=== PATIENT | female | born 2000 | race African-American/Black ===

== ENCOUNTER 2021-03-18 11:38 | Observation (INO) | payer MEDICAID, SELFPAY ==
[2021-03-18] VITALS (7 sets, daily range): BP systolic 99–125; BP diastolic 48–73; PULSE 70–97; RESP 18; TEMP 36.7; BMI 24.5
--- NOTE | 2021-03-18 11:38 | OBADM ---
This patient, Hai Quezada, admitted to the OB room OB Post 117 for observation. Patient/family oriented to hospital policies and general routines including ID bracelet, bed and alarms, visiting hours, pain management, procedures, bathroom and other care routines, personal items, smoking policy, room service/diet, and visiting hours. Patient/Family are encouraged to report perceived risks to care and to ask questions if they do not understand what they are told or what they should do.
[2021-03-18 12:35] LABS: Add Urine Microscopic? YES; Appearance Urine Cloudy (Clear); Bacteria Urine Trace /hpf; Bilirubin Urine Negative (Negative); Blood Urine Negative (Negative); Color Urine Yellow (Yellow); Glucose Urine UA Negative (Negative); Ketones Urine Negative (Negative); Leukocyte Esterase Ur 3+ LEU/UL (Negative); Mucus Urine Rare /lpf; Nitrate Urine Negative (Negative); Protein Urine Negative (Negative); Specific Grav Ur 1.014 (1.001-1.035); Squamous Epithelial Cell Urine Many /hpf (Few); Urobilinogen Urine Negative mg/dL (<2.0)
[2021-03-18] MEDS: TERBUTALINE SULFATE 1 MG/ML VIAL 0.25 MG SUB-Q (15:39)
[2021-03-18] MEDS: BETAMETHASONE SOD PHOS/ACETATE 30 MG/5 ML VIAL 12 MG IM (15:45)
--- NOTE | 2021-03-18 16:07 | WPDCN ---
Assessment and Plan Assessment and plan (1) contractions: Code(s): O47.00 - False labor before 37 completed weeks of gestation, unspecified trimester Status: Acute Assessment and Plan: pt with contractions no resolution following PO hydration and lunch per RN, SIDNEY 1/75/0 Terb x 1 dose to be given now will also administer celestone GBS collected will continue to monitor for now (2) 34 weeks gestation of : Code(s): Z3A.34 - 34 weeks gestation of Status: Acute Assessment and Plan: pt with outside care records requested for review HPI Data of Consult Date/Time: 03/18/21 16:07 Requesting Physician: Anamaria Rodas MD Primary Care Provider: CHUCK WAGON COOK PHYSICIAN Consult Narrative Narrative: Hai Quezada is a 20 year old female currently 34w2d gestation with SEBASTIAN 04/27/21 (per patient) who presented to L&D with complaints of contractions. Patient reports onset of contractions two days ago and reports significant increase in frequency and intensity of contractions today. She was previously receiving care in [place], [place] at [facility] and recently moved to this area approx. 2 weeks ago. She states that she was previously hospitalized for contractions and received a shot to stop contractions. Denies any vaginal bleeding or leakage of fluid. Reports good movement. In general, patient reports an uncomplicated course, however, states she was being followed for possible SGA fetus. She reports a history of trichomonas during and states that she was treated and also that ABIGAIL was negative. She reports marijuana use during as well. History of one prior miscarriage at 9 weeks s/p medical management. Review of Systems Review of Systems: All systems reviewed & are unremarkable except as noted in HPI and below Constitutional: Constitutional: Reports as per HPI, Reports no additional constitutional complaints, Denies chills, Denies fever(s), Denies headache(s) and Denies night sweats Eyes: Eyes: Reports as per HPI and Reports no additional eye complaints ENT: Reports system reviewed and no additional complaints, except as documented, Reports as per HPI, Reports Normal hearing present and Denies headache(s) Cardiovascular: Cardiovascular: Reports as per HPI, Reports no additional cardiovascular complaints, Denies chest pain and Denies dyspnea Respiratory: Respiratory: Reports as per HPI, Reports no additional respiratory complaints, Denies cough and Denies dyspnea Gastrointestinal: Gastrointestinal: Reports as per HPI, Reports no additional gastrointestinal complaints, Denies abdominal pain, Denies change in bowel habits, Denies change in stool character, Denies nausea and Denies vomiting Genitourinary: Genitourinary: Reports no additional female genitourinary complaints, Reports as per HPI, Denies abnormal vaginal bleeding, Denies genital lesions, Denies hot flashes, Denies dyspareunia, Denies pelvic pain, Denies sexual dysfunction, Denies urinary incontinence, Denies vaginal discharge, Denies vaginal dryness and Denies vaginal odor Musculoskeletal: Musculoskeletal: Reports no additional musculoskeletal complaints and Reports as per HPI Integumentary/Breasts: Skin/Breast: Reports system reviewed and no additional complaints, except as docu, Reports as per HPI, Denies breast pain and Denies nipple discharge Neurologic: Reports system reviewed and no additional complaints, except as documented, Reports as per HPI, Reports Normal hearing present and Denies headache(s) Psychiatric: Psychiatric: Reports no additional psychiatric complaints, Reports as per HPI, Denies anxiety and Denies depression Endocrine: Endocrine: Reports no additional endocrine complaints and Reports as per HPI Hematologic/Lymphatic: Hematologic/Lymphatic: Reports no additional hematologic/lymphatic complai
[2021-03-18] MEDS: NIFEdipine 10 MG CAPSULE PO ×2 (17:29→22:43)
[2021-03-18] MEDS: LACTATED RINGERS 1,000 ML 125 ML IV CONT (21:33)
[2021-03-19 00:02] VITALS: RESP 18; TEMP 36.9
[2021-03-19] MEDS: LACTATED RINGERS 1,000 ML 125 ML IV CONT (00:20)
[2021-03-19] MEDS: hydrOXYzine HCl 50 MG/ML VIAL IM (02:05)
[2021-03-19 02:09] VITALS: BP 111/50; PULSE 77
[2021-03-19 04:07] VITALS: RESP 16; TEMP 36.8
[2021-03-19] MEDS: NIFEdipine 10 MG CAPSULE PO (04:46)
[2021-03-19 04:48] VITALS: BP 106/63; PULSE 84
[2021-03-19 07:53] VITALS: BP 111/55; PULSE 88
--- NOTE | 2021-03-19 09:45 | PC.NURSE ---
RELEASE OF INFORMATION FAXED TO PT PREVIOUS PROVIDER AT [facility]. PT IS TO RETURN TODAY FOR CELESTONE AT [id number].
--- NOTE | 2021-03-19 10:03 | P.PNOB_ITS ---
OB - PN: Subj Subjective Date/time seen: 03/19/21 10:03 Patient remained in house overnight. She received Terb x 1 dose yesterday afternoon followed by a few doses of Procardia. Frequency of contractions varied throughout observation period, however, spaced out significantly after patient received Vistaril. This morning, occ contractions were still noted on toco. SVE mostly unchanged at 1/75/-1 to 0 station (per RN). EFM reactive. Decision made to discharge patient home in stable condition. Patient made aware that she may continue to experience occasional contractions throughout duration of her . Emergency precautions reviewed. Rx for Procardia sent to pharmacy for PRN use. Patient instructed to return to L&D for second dose of celestone this afternoon. Also advised to schedule f/u appt in office next week. All questions and concerns addressed. OB - PN: Obj Data Labs Labs: Laboratory Results - last 24 hr 03/18/21 12:15 Urine Color Yellow Urine Appearance Cloudy H Urine pH 8.0 Ur Specific [place] 1.014 Urine Protein Negative Urine Glucose (UA) Negative Urine Ketones Negative Ur Blood (Man) Negative Urine Nitrate Negative Urine Bilirubin Negative Urine Urobilinogen Negative Leukocyte Esterase Rfl 3+ H Urine RBC 6-10 H Urine WBC 10-15 H Ur Squamous Epith Cells Many H Urine Bacteria Trace Hyaline Casts 1-2 Urine Mucus Rare OB - PN A/P Time Spent With Patient Time: Total time spent is greater than 50% in coordination of care (as documented) at patient's floor/unit and/or counseling patient:
== END 2021-03-19 09:38 | disposition home or self-care (01) ==
PROVIDERS: Admitting Provider Student in an Organized Health Care Education/Training Program; Visit Provider Student in an Organized Health Care Education/Training Program
DX: O47.03 False labor before 37 completed weeks of gestation, third trimester (principal); Z3A.34 34 weeks gestation of pregnancy
CPT/HCPCS: 81001; 87077; 87081; 87086; 87088; 96360; 96361; 96372; A9270; G0378; G0379; J0131; J0702; J3105; J3410; J7120

== ENCOUNTER 2021-03-25 12:43 | Outpatient (RCR) | payer MEDICAID, SELFPAY ==
--- NOTE | ~2021-03-25 | US_ITS ---
EXAMINATION: US OB follow up w BPP, US umbilical doppler DATE: 03/25/2021 15:23 (accession [id number]), 03/25/2021 15:07 (accession [id number]) INDICATION: Small for gestational age. Evaluate growth. TECHNIQUE: Real-time ultrasound of the pelvis was performed. The interpreting radiologist was not pre sent for the study. COMPARISON: None. FINDINGS: There is a single living fetus in vertex presentation. The placenta is anterior. cardiac activ ity and movement are noted. heart rate is 155 beats per minute (bpm). The amniotic fluid index is 8.8 cm, which is normal. Normal range for gestational age is 7.9-24.9 cm. The following biometric data were obtained: BPD: 84 cm corresponds to gestational age 33 weeks 6 day(s). Head circumference: 289 cm corresponds to gestational age 31 weeks 6 day(s). Abdominal circumference: 272 cm corresponds to gestational age 31 weeks 2 day(s). Femur length: 61 cm corresponds to gestational age 31 weeks 6 day(s). Head circumference to abdominal circumference ratio: 1.06. Estimated weight: 1826 g plus or minus 274 g. Biophysical profile performed by the technologist: breathing (30 sec sustained breathing in 30 minutes): 2 out of 2 movement (3 gross body movements in 30 minutes: 2 out of 2 tone (one episode of kuedjgn-lwxoyfuhp-xxzbtnd limb movement): 2 out of 2 Amniotic fluid pocket (2 cm): 2 out of 2 Total score: 8 out of 8 Umbilical artery pulsed Doppler demonstrates peak systolic to end-diastolic velocity ratios (S/D rati os) of 2.25 (5th percentile = 2.03, 95th percentile = 3.4). Doppler IMPRESSION: 1. Single living fetus in vertex presentation with heart rate of 155 bpm. 2. Normal placenta. 3. Biophysical profile 8 out of 8. 4. Gestational age by ultrasound of 32 weeks 2 day(s) with ultrasound estimated date of delivery (SEBASTIAN ) of 05/18/2021. 5. Normal umbilical Doppler ratios. Reviewed, dictated and finalized at location A. IMPRESSION: 1. Single living fetus in vertex presentation with heart rate of 155 bpm. 2. Normal placenta. 3. Biophysical profile 8 out of 8. 4. Gestational age by ultrasound of 32 weeks 2 day(s) with ultrasound estimated date of delivery (SEBASTIAN) of 05/18/2021. 5. Normal umbilical Doppler ratios.
[2021-03-25 13:36] LABS: Basophils Percent Auto 0.4 % (0.2-1.2); Eosinophils Absolute Auto 0.1 K/mm3 (0-0.3); Hematocrit 34.2 % (37.0-47.0); Hemoglobin 11.5 g/dL (12.0-15.0); Immature Granulocyte Absolute 0.14 K/mm3 (0.00-0.031); Immature Granulocyte Percent A 1.9 % (0-0.5); Lymphocytes Percent Auto 27.7 % (18.3-44.2); Mean Corpuscular HGB Conc 33.6 g/dl (32-36); Mean Corpuscular Volume 92.2 fl (80-100); Mean Platelet Volume 11.1 fl (7.4-10.4); Monocytes Absolute Auto 0.7 K/mm3 (0.1-0.6); Monocytes Percent Auto 9.6 % (2.6-8.5); Neutrophils Absolute Auto 4.3 K/mm3 (1.3-6.7); Neutrophils Percent Auto 59.4 % (45.5-73.1); Platelet Count Result 244 k/mm3 (150-375); Red Blood Count 3.71 M/mm3 (4.2-5.4); Red Cell Distribution Width 12.8 % (11.5-14.5); White Blood Count 7.2 K/mm3 (4.5-10.0)
[2021-03-25 14:27] LABS: HIV 1/2 Ab P24 Ag Result Negative (Negative)
[2021-03-25 16:12] VITALS: BP 107/46; PULSE 77
--- NOTE | 2021-03-25 16:13 | PC.NURSE ---
Pt getting very impatient waiting for results. 1543-called ultrasound for update on results. altitude chamber technician stated the report says complete on their end and should receive results soon. 1556-called ultrasound again for update on results. 1600-pt getting more impatient and stating she needed to leave and would come back if she needed to. Pt encouraged to stay until results per Dr. Rodas's instructions. 1612-pt walked out of department. 161-Dr. Rodas notified.
[2021-03-27 15:38] LABS: Rapid Plasma Reagin Non-Reactive (NonReactive)
== END 2021-06-10 14:14 | disposition home or self-care (01) ==
LOC: ANHOBOP 12:43
PROVIDERS: Visit Provider Student in an Organized Health Care Education/Training Program
DX: O36.5930 Maternal care for other known or suspected poor fetal growth, third trimester, not applicable or unspecified (principal); Z11.4 Encounter for screening for human immunodeficiency virus [HIV]; Z3A.35 35 weeks gestation of pregnancy
CPT/HCPCS: 36415; 59025; 76816; 76819; 76820; 85025; 86592; 86703; G0432

== ENCOUNTER 2021-04-01 05:08 | Inpatient (IN) | payer MEDICAID, SELFPAY ==
[2021-04-01] VITALS (85 sets, daily range): BP systolic 77–129; BP diastolic 38–99; PULSE 50–225; RESP 16; TEMP 36.7–37.3; O2SAT 73–100; BMI 23.8
--- OUTSIDE RECORDS SUMMARY | 2021-04-01 05:17 | XMS_ITS ---
:2000 Author Care Team Providers Name Role Phone Marco Herndon Primary Care Provider Unavailable Allergies Code Code System Name Reaction Severity Status Onset NKDA ? Medications Name Status Start Date Stop Date ? ? azithromycin 500 mg tablet Active ? Not a vailable Benadryl 25 mg capsule Active ? Not avail able Take 1 capsule every day by oral route at bedtime. ibuprofen 600 mg tablet Active ? Not avai lable medroxyprogesterone 150 mg/mL Active ? No t available intramuscular suspension metronidazole 500 mg tablet Active ? Not available multivitamin tablet Active ? Not availabl e Take 1 tablet every day by oral route for 30 days. Retin-A 0.05 % topical cream Active ? Not available Apply 1 application every day by topical route at bedtime. Tubersol 5 tub. unit/0.1 mL intradermal injection solution Activ e ? Not available Administer .1ml interdermally Vitamin D2 1,250 mcg (50,000 unit) capsule Active ? Not available Problems Name Status Onset Date Source ? Chlamydial Infection Active ? Encounter Vitamin D Deficiency Active ? Encounter Acne Active ? Encounter Dyssomnia Active ? Encounter Procedures None recorded. Results Lab Results Date Name Specimen Result Interpretation Description Value Range Status Address ? 06/28/2018 Bacterial DRAINAGE&DRAINAGE ABNORMAL [facility]
[2021-04-01] MEDS: AMPICILLIN 2 GM/NS 100 ML 2 GM/100 ML BAG IVPB (06:07)
[2021-04-01] MEDS: LACTATED RINGERS 1,000 ML 125 ML IV CONT ×3 (06:07→16:49)
[2021-04-01] MEDS: OXYTOCIN 30 UNITS/NS 500 ML 30 UNITS/500 ML BAG IV CONT (06:08)
[2021-04-01 06:22] LABS: Amphetamine Screen Urine Negative (Negative); Barbiturate Screen Urine Negative (Negative); Benzodiazepines Screen Urine Negative (Negative); Cannabinoid Screen Urine Positive (Negative); Cocaine Screen Urine Negative (Negative); Methadone Screen Urine Negative (Negative); Opiate Screen Urine Negative (Negative); Phencyclidine Screen Urine Negative (Negative)
[2021-04-01 06:24] LABS: Basophils Absolute Auto 0.1 K/mm3 (0.0-0.1); Basophils Percent Auto 0.6 % (0.2-1.2); Eosinophils Absolute Auto 0.1 K/mm3 (0-0.3); Eosinophils Percent Auto 0.7 % (0-4.4); Hematocrit 35.3 % (37.0-47.0); Hemoglobin 11.8 g/dL (12.0-15.0); Immature Granulocyte Absolute 0.16 K/mm3 (0.00-0.031); Immature Granulocyte Percent A 1.9 % (0-0.5); Lymphocytes Absolute Auto 2.43 K/mm3 (0.9-3.2); Mean Corpuscular HGB Conc 33.4 g/dl (32-36); Mean Corpuscular Hemoglobin 31.1 pg (26-34); Mean Corpuscular Volume 92.9 fl (80-100); Mean Platelet Volume 11.2 fl (7.4-10.4); Monocytes Absolute Auto 0.7 K/mm3 (0.1-0.6); Monocytes Percent Auto 7.9 % (2.6-8.5); Neutrophils Percent Auto 59.9 % (45.5-73.1); Platelet Count Result 217 k/mm3 (150-375); White Blood Count 8.4 K/mm3 (4.5-10.0)
--- NOTE | 2021-04-01 08:19 | LDADM ---
This patient, Hai Quezada, was admitted to Labor/Delivery/Recovery 103 on 04/01/21 at 05:08. Plans for labor, pain management and were discussed with patient. Patient/family oriented to hospital policies and general routines including ID bracelet, bed and alarms, visiting hours, pain management, procedures, bathroom and other care routines, personal items, smoking policy, room service/diet and guest tray routines, infant security routines, and visiting hours. Patient/Family are encouraged to report perceived risks to care and to ask questions if they do not understand what they are told or what they should do. See OBIX for further documentation.
--- NOTE | 2021-04-01 08:57 | PM.IMHP ---
H&P: HPI History of Present Illness Date/Time: 04/01/21 08:57 Patient is a currently 36w2d gestation with SEBASTIAN 04/27/21 who presented to L&D for induction of labor secondary to IUGR. Patient was previously receiving care in [place], [place] at [facility] and recently moved to this area approx. 4 weeks ago. She was seen on L&D approx. 2 weeks ago for contractions. She reported a history of IUGR that was diagnosed in [place]. Further evaluation at [facility] here confirmed similar findings and recommendation was made to proceed with IOL as EFW 3% and THOMAS 5cm. In general, patient doing well. Reports occ contractions. Denies any vaginal bleeding or leakage of fluid. Reports good movement. Chief Complaint: Intrauterine at 36w2d gestation Intrauterine growth restriction GBS positive Review of Systems Review of Systems: All systems reviewed & are unremarkable except as noted in HPI and below Constitutional: Constitutional: Reports as per HPI, Reports no additional constitutional complaints, Denies chills, Denies fever(s), Denies headache(s) and Denies night sweats Eyes: Eyes: Reports as per HPI and Reports no additional eye complaints ENT: Reports system reviewed and no additional complaints, except as documented, Reports as per HPI, Reports Normal hearing present and Denies headache(s) Cardiovascular: Cardiovascular: Reports as per HPI, Reports no additional cardiovascular complaints, Denies chest pain and Denies dyspnea Respiratory: Respiratory: Reports as per HPI, Reports no additional respiratory complaints, Denies cough and Denies dyspnea Gastrointestinal: Gastrointestinal: Reports as per HPI, Reports no additional gastrointestinal complaints, Denies abdominal pain, Denies change in bowel habits, Denies change in stool character, Denies nausea and Denies vomiting Genitourinary: Genitourinary: Reports no additional female genitourinary complaints, Reports as per HPI, Denies abnormal vaginal bleeding, Denies genital lesions, Denies hot flashes, Denies dyspareunia, Denies pelvic pain, Denies sexual dysfunction, Denies urinary incontinence, Denies vaginal discharge, Denies vaginal dryness and Denies vaginal odor Musculoskeletal: Musculoskeletal: Reports no additional musculoskeletal complaints and Reports as per HPI Integumentary/Breasts: Skin/Breast: Reports system reviewed and no additional complaints, except as docu, Reports as per HPI, Denies breast pain and Denies nipple discharge Neurologic: Reports system reviewed and no additional complaints, except as documented, Reports as per HPI, Reports Normal hearing present and Denies headache(s) Psychiatric: Psychiatric: Reports no additional psychiatric complaints, Reports as per HPI, Denies anxiety and Denies depression Endocrine: Endocrine: Reports no additional endocrine complaints and Reports as per HPI Hematologic/Lymphatic: Hematologic/Lymphatic: Reports no additional hematologic/lymphatic complaints and Reports as per HPI Allergic/Immunologic: Allergic/Immunologic: Reports no additional allergic/immunologic complaints and Reports as per HPI PMFSH Past Medical History Medical History Anemia Miscarriage Social History Social History Smoking status: Never smoker Alcohol intake: former Substance use: current Substance use type: marijuana Last use: unsure Spiritual care concerns: No Agree to blood products: No Meds Home Medications and Allergies Home Medications Medication Instructions Recorded Confirmed Type prenat.vits,morro,gnv-eiyd-xxhdb 1 tablet PO DAILY 03/18/21 03/18/21 History nifedipine 10 mg PO Q6HR PRN cap 03/19/21 Rx amoxicillin 875 mg tablet 875 mg PO Q12H #10 tablet 03/23/21 Rx Allergies Allergy/AdvReac Type Severity Reaction Status Date / Time No Known Allergies Allergy Lm
[2021-04-01] MEDS: AMPICILLIN 1 GM/NS 50 ML 1 GM/50 ML BAG IVPB ×3 (10:28→17:52)
--- NOTE | 2021-04-01 13:18 | PM.OBPNLAB ---
Pain Control Date/time seen: 04/01/21 13:18 Patient doing well. SVE 3/80/0. AROM, clear fluid noted. EFM category 1. Peerless shows ctx q2-3 mins. Continue pitocin. Pain management PRN.
[2021-04-01] MEDS: fentaNYL CITRATE INJ (*CRX) 100 MCG/2 ML VIAL IV PUSH (13:58)
--- NOTE | 2021-04-01 14:39 | WPDANESEPPF ---
Anes - Initial Pre Proc Eval Date/Time: 04/01/21 14:39 Surgeon: Anamaria Rodas MD Pre Op Diagnosis: Induction of Labor Patient Data Age: 21 Gender: F Height: 1.63 m Weight: 63 kg Last Vital Signs Temp 37.3 C 04/01/21 13:30 Pulse 71 04/01/21 14:31 BP 107/67 04/01/21 14:31 Allergies Allergy/AdvReac Type Severity Reaction Status Date / Time No Known Allergies Allergy Verified 03/31/21 13:11 Home Medications Medication Instructions Recorded Confirmed Type prenat.vits,morro,pgb-zvna-kvoar 1 tablet PO DAILY 03/18/21 03/18/21 History nifedipine 10 mg PO Q6HR PRN cap 03/19/21 Rx amoxicillin 875 mg tablet 875 mg PO Q12H #10 tablet 03/23/21 Rx Laboratory Tests 04/01/21 04/01/21 04/01/21 05:43 05:43 05:43 WBC 8.4 K/mm3 K/mm3 (4.5-10.0) RBC 3.80 M/mm3 L M/mm3 (4.2-5.4) Hgb 11.8 g/dL L g/dL (12.0-15.0) Hct 35.3 % L % (37.0-47.0) MCV 92.9 fl fl (80-100) MCH 31.1 pg pg (26-34) MCHC 33.4 g/dl g/dl (32-36) RDW 13.0 % % (11.5-14.5) Plt Count 217 k/mm3 k/mm3 (150-375) MPV 11.2 fl H fl (7.4-10.4) Immature Gran % (Auto) 1.9 % H % (0-0.5) Neut % (Auto) 59.9 % % (45.5-73.1) Lymph % (Auto) 29.0 % % (18.3-44.2) Garrett % (Auto) 7.9 % % (2.6-8.5) Eos % (Auto) 0.7 % % (0-4.4) Baso % (Auto) 0.6 % % (0.2-1.2) Lymph # (Auto) 2.43 K/mm3 K/mm3 (0.9-3.2) Garrett # (Auto) 0.7 K/mm3 H K/mm3 (0.1-0.6) Eos # (Auto) 0.1 K/mm3 K/mm3 (0-0.3) Baso # (Auto) 0.1 K/mm3 K/mm3 (0.0-0.1) Abs Immat Gran (auto) 0.16 K/mm3 H K/mm3 (0.00-0.031) Absolute Neuts (auto) 5.0 K/mm3 K/mm3 (1.3-6.7) Absolute Nucleated RBC 0.0 K/mm3 K/mm3 (0.0-0.012) Nucleated RBC % 0.0 % % (0.0-0.2) Urine Opiates Screen Urine Methadone Screen Ur Barbiturates Screen Ur Phencyclidine Scrn Ur Amphetamine Screen U Benzodiazepines Scrn Urine Cocaine Screen U Cannabinoids Screen RPR Pending Blood Type O Positive Antibody Screen Negative 04/01/21 05:43 WBC RBC Hgb Hct MCV MCH MCHC RDW Plt Count MPV Immature Gran % (Auto) Neut % (Auto) Lymph % (Auto) Garrett % (Auto) Eos % (Auto) Baso % (Auto) Lymph # (Auto) Garrett # (Auto) Eos # (Auto) Baso # (Auto) Abs Immat Gran (auto) Absolute Neuts (auto) Absolute Nucleated RBC Nucleated RBC % Urine Opiates Screen Negative (Negative) Urine Methadone Screen Negative (Negative) Ur Barbiturates Screen Negative (Negative) Ur Phencyclidine Scrn Negative (Negative) Ur Amphetamine Screen Negative (Negative) U Benzodiazepines Scrn Negative (Negative) Urine Cocaine Screen Negative (Negative) U Cannabinoids Screen Positive A (Negative) RPR Blood Type Antibody Screen Patient hx anesthesia problems: none Family hx anesthesia problems: none Results Review: All pre-operative results and documents have been reviewed as part of the pre-operative evaluation. [facility] Past Medical History Medical History Anemia Miscarriage Social History Social History Smoking status: Never smoker Alcohol intake: former Substance use: current Substance use type: marijuana Last use: unsure Spiritual care concerns: No Agree to blood products: No Anes - Eval Final PreProcedure Day of Procedure 04/01/21 14:39 Patient weight: overweight Heart: regular rate and rhythm Lungs: clear to a
[2021-04-01 15:19] LABS: Rapid Plasma Reagin Non-Reactive (NonReactive)
--- NOTE | 2021-04-01 16:12 | WPDHPUPDATE1 ---
History and Physical Update Update Date/Time: 04/01/21 16:12 History and Physical has been reviewed, including an updated exam of the patient. There are NO changes in the patient's condition. Risks, benefits, and alternatives have been discussed and questions answered. Patient agrees to proceed with procedure.
[2021-04-01] MEDS: ONDANSETRON INJ 4 MG/2 ML VIAL IV PUSH (17:39)
--- NOTE | 2021-04-01 18:42 | PM.OBPRVD ---
OB - Delivery Note Procedure Delivery date: 04/01/21 Procedure: The patient is a 21-year-old now who presented to labor and delivery on the morning of 04/01/2021 at 36 weeks 2 days gestation for scheduled induction of labor secondary to IUGR. Patient was admitted to labor and delivery where induction of labor was started with Pitocin. Antibiotics were started for GBS prophylaxis. Pitocin was slowly titrated throughout the morning and afternoon. Artificial rupture membranes was performed. Clear amniotic fluid was noted. Patient made progressive cervical change. Patient became uncomfortable and requested an epidural for pain management which was placed without difficulty. Patient progressed to fully dilated at 6:10 p.m. head was noted at introitus. Patient was prepped and draped for delivery. Patient was encouraged to push. At 6:27 p.m., patient delivered infant head atraumatically and without difficulty in HAO presentation. Occiput restituted to maternal left side. With subsequent push, the 's neck, shoulders, and rest of body delivered without difficulty. was crying spontaneously. Infant's nose and mouth were suctioned with bulb suction and infant was placed on maternal abdomen where care was assumed by awaiting nursing staff. Delayed cord clamping was performed for approximately 60 seconds. The cord was clamped and cut. A segment of cord was collected for cord gases. Cord blood was collected. The placenta was delivered spontaneously and intact. Uterine fundus noted be firm with massage. On inspection, a superficial left vaginal wall laceration was noted. Minimal oozing was noted. A single ppiyib-dd-[id number] suture with 3-0 Vicryl was placed. Excellent hemostasis was noted. Estimated blood loss for entire delivery was 150 cc. The infant was a liveborn female , apgars 9 and 9, weighing 4 lbs 10 oz. Both mother and baby doing well after delivery. events: Labor Induction Induction method: per pitocin protocol Delivery augmentation: rupture of membranes Delivery monitor: external FHT and external uterine Route of delivery: Laceration Description: Superficial (left vaginal wall) Delivery repair: vicryl (3-0 vicryl) Specimen: Yes (placenta and cord) Quantitative Blood Loss (ml): 150 Anesthesia type: Epidural Disposition: floor Complications: No immediate complications Baby Date of : 04/01/21 Time of : 18:27 Weeks of gestation at delivery: 36 (36.2) gender: Female Weight (pounds): 4 Weight (ounces): 10 presentation: vertex position: Left Occiput Anterior Placenta delivery description: Spontaneous cord vessel description: 3 Vessels and Clamped/Cut score one minute: 9 score five minutes: 9
[2021-04-01] MEDS: OXYTOCIN 30 UNITS/NS 500 ML 30 UNITS/500 ML BAG 125 UNITS IV CONT (18:57)
[2021-04-01] MEDS: IBUPROFEN 600 MG TABLET PO (20:19)
--- NOTE | 2021-04-01 21:41 | OBPPTRN ---
Addendum entered by Radha Quinones RN 04/01/21 23:15: Patient transferred to post room #292 via wheelchair. Oriented to unit, room, information board, rooming in, admission packet and security measures. Patient verbalizes understanding. Original Note: Patient transferred to post room # via ( ). Support person present. Oriented to unit, room, information board, rooming in, admission packet and security measures. Patient verbalizes understanding.
[2021-04-01] MEDS: HYDROcodone/acetaminophen (*CRX) 5-325 MG TABLET 1 TAB PO (22:00)
[2021-04-02] VITALS: BP 110/62; PULSE 62; RESP 16; TEMP 36.9
[2021-04-02 04:00] VITALS: BP 111/60; PULSE 51; RESP 16; TEMP 36.9
[2021-04-02 04:54] LABS: Hematocrit 33.4 % (37.0-47.0); Hemoglobin 10.9 g/dL (12.0-15.0)
--- NOTE | 2021-04-02 08:00 | PC.NURSE ---
PT introductions made and plan of care discussed per post , pain management, breast bottle feeding, daily care activities. PT received such instructions this shift per one to one discussion, mom baby care guide and demonstration. PT sole recipient of such instructions and no barriers to learning identified at this time. PT verbalized understanding of such care.
[2021-04-02 08:40] VITALS: BP 124/90; PULSE 54; RESP 18; TEMP 37.1; O2SAT 100
[2021-04-02 10:00] VITALS: PULSE 51; RESP 16; O2SAT 87
[2021-04-02] MEDS: MULTIVIT/MIN/PREN/FOL AC/IRON TABLET 1 TAB PO (10:00)
[2021-04-02] MEDS: ACETAMINOPHEN 325 MG TABLET 650 MG PO ×2 (10:00→18:34)
[2021-04-02] MEDS: DOCUSATE SODIUM 100 MG CAPSULE PO ×2 (10:00→18:32)
[2021-04-02] MEDS: IBUPROFEN 600 MG TABLET PO ×2 (10:01→18:32)
--- NOTE | 2021-04-02 10:32 | P.PNOB_ITS ---
OB - PN: Subj Subjective Date/time seen: 04/02/21 10:32 Patient doing well this morning. Reports minimal burning with urination as urine contacts skin. Reports relief with rodri bottle. Minimal lochia. Ambulating without difficulty. Baby well. OB - PN: Obj Data Labs CBC & Chem 7: 04/02/21 04:05 Labs: Laboratory Results - last 24 hr 04/01/21 04/02/21 05:43 04:05 Hgb 10.9 L Hct 33.4 L RPR Non-reactive OB - PN A/P Assessment and Plan (1) Normal spontaneous vaginal delivery: Code(s): O80 - Encounter for full-term uncomplicated delivery Status: Acute Assessment and Plan: PPD#1 doing well continue routine care anticipate dc home tomorrow Time Spent With Patient Time: Total time spent is greater than 50% in coordination of care (as do cumented) at patient's floor/unit and/or counseling patient: Exam Const: General: cooperative, healthy appearing, comfortable and no acute distress GI: Inspection: non-distended GI Palp: Yes Soft to palpation and No Tenderness to palpation present (GI) Other: fundus firm below umbilicus Extrem: Right lower extremity: no edema Left lower extremity: no edema Other: no calf tenderness
--- NOTE | 2021-04-02 11:43 | PCCCNOTE ---
Care Coordination. Patient referred to care coordination for positive THC for mom and baby meconium pending. Met with pt. at bedside. She reports plans to return home with her mother. She was living in [place], [place] a couple years, but in the last month or so moved back here to stay with mom for assistance with baby. She reports FOB not thinking he's dad, so gave her DNA testing information. Pt. reports she had baby shower and all necessary baby supplies. Provided her with a list of community resources as well. Spoke with Raul Jordan at [facility] hotline who took pt.'s situation as information only ID#[phone]. No further SS needs indicated.
[2021-04-02 11:50] VITALS: BP 110/63; PULSE 74; RESP 18; TEMP 37; O2SAT 100
--- NOTE | 2021-04-02 12:30 | PC.NURSE ---
Consult with pt., mother reports she wanted to breastfeed and is not latching. Mother has attempted to breast without a successful latch. Discussed establishing in the late may be more difficult due to their immaturity, infant may be less alert, have less stamina, and have greater difficulty with latch, suck, and swallow. Infant?s feeding may impact mother?s milk supply, pumping may need to be initiated until milk supply is well established and infant is able to effective without supplementation. Offered to assist mother with pumping. Mother states she will pump and offer EBM as available to infant.
--- NOTE | 2021-04-02 14:10 | PC.NURSE ---
Breast pump provided due to /ineffective feeding. Instructions given on breast pump care and usage, pumping schedule, nipple care, and collection and storage of breast milk. Encouraged [id number], breast massage and manual expression to stimulate supply. Assessed patient for correct flange size, placement and draw. Patient verbalizes and demonstrates understanding of instructions. Mother states she will bottle feed and attempt infant to breast once her milk is in. Suggested mother put to breast each feeding for a few minutes to allow her to make attempts, helping with stimulation of milk supply.
[2021-04-02 19:30] VITALS: BP 105/55; PULSE 74; RESP 18; TEMP 37; O2SAT 100
[2021-04-03] MEDS: HYDROcodone/acetaminophen (*CRX) 5-325 MG TABLET 1 TAB PO (02:35)
[2021-04-03] MEDS: IBUPROFEN 600 MG TABLET PO ×2 (02:35→11:17)
--- NOTE | 2021-04-03 07:00 | PC.NURSE ---
PT introductions made and plan of care discussed per post , pain management, breast bottle feeding, pumping, daily care activities and pending discharge to home. PT sole recipient of such instructions and no barriers to learning identified. PT received such instructions and care this shift via one to one discussion, mom baby care guide and demonstrations. PT verbalized understanding of such care.
--- NOTE | 2021-04-03 09:50 | PM.OBPNVD ---
OB - PN: Subj Subjective Date/time seen: 04/03/21 09:50 Patient doing well. Denies any abdominal pain or cramping. Minimal lochia. Denies any headache, chest pain, SOB, N/V. Ambulating without difficulty. Voiding well. OB - PN: Obj Data Labs CBC & Chem 7: 04/02/21 04:05 OB - PN A/P Assessment and Plan (1) Normal spontaneous vaginal delivery: Code(s): O80 - Encounter for full-term uncomplicated delivery Status: Acute Assessment and Plan: PPD#2 doing well dc home in stable condition emergency precautions reviewed Time Spent With Patient Time: Total time spent is greater than 50% in coordination of care (as documented) at patient's floor/unit and/or counseling patient: Exam Const: General: cooperative, healthy appearing, comfortable and no acute distress GI: Inspection: non-distended GI Palp: Yes Soft to palpation and No Tenderness to palpation present (GI) Other: fundus firm below umbilicus Extrem: Right lower extremity: no edema Left lower extremity: no edema Other: no calf tenderness
--- NOTE | 2021-04-03 09:52 | PM.OBDSVD ---
DS: Admitting Diagnosis Discharge Date 04/03/21 Admitting Diagnosis IUP at 36w2d gestation IUGR OB - DS: Summary OB Procedures : None OB Procedures Intrapartum: Spontaneous Vag Delivery OB Procedures: : None Time Spent with Patient Time attestation: Total time spent providing and/or coordinating discharge services: DS: Data Data Completed and Pending Pending studies at discharge: Pending at discharge 04/01/21 19:37 Surgical [PTH] Routine Discharge Plan Discharge Attending physician on discharge: Anamaria Rodas Discharging Clinician: Anamaria Rodas Anticipated Discharge Date/Time: 04/03/21 09:52 Patient Disposition: Home, Self-Care Activity: pelvic rest Diet: regular Discharge Instructions: Call office ([phone]) to schedule a visit in 4-6 weeks. You may take Ibuprofen 600mg every 6 hours as needed for pain. Pain medication may make you constipated. It may be helpful to take an [id number] stool softener, such as Colace and/or Senokot, along with the pain medication to help lessen constipation. Call office or go to ED for pain not controlled with medication, headache, chest pain, shortness of breath, fever, chills, persistent nausea or vomiting, severe abdominal pain, heavy vaginal bleeding >2 pads/hour, foul vaginal discharge or odor, or problems with your breasts. Patient Instructions: Antibiotic Form Stand Alone Forms: General Discharge Information Follow-up/Referrals: Anamaria Rodas MD [Physician] - Discharge Medications: Continued prenat.vits,morro,ypo-mctm-hummn Tablet 1 tablet PO DAILY RF: 0 Discontinued nifedipine 10 mg Capsule 10 mg PO Q6HR PRN (Reason: Cramping) RF: 0 amoxicillin 875 mg tablet 875 mg PO Q12H Qty: 10 RF: 0 Date of admission: 04/01/21 05:08 Primary Care Provider: PHYSICIAN,PEDIATRIC PHYSICIAN Admitting Provider: Anamaria Rodas Attending physician on admission: Anamaria oRdas Condition: Stable
[2021-04-03 11:00] VITALS: BP 108/60; PULSE 64; RESP 18; TEMP 36.6; O2SAT 100
[2021-04-03] MEDS: DOCUSATE SODIUM 100 MG CAPSULE PO (11:16)
[2021-04-03] MEDS: ACETAMINOPHEN 325 MG TABLET 650 MG PO (11:17)
[2021-04-03] MEDS: MULTIVIT/MIN/PREN/FOL AC/IRON TABLET 1 TAB PO (11:17)
--- NOTE | 2021-04-03 12:00 | PC.NURSE ---
PT receive discharge instructions per protocol and verbalized understanding of such instruction
--- NOTE | 2021-04-03 12:30 | PC.NURSE ---
PT discharged to home ambulatory accompanied by infant and taken to waiting car. follow up appts confirmed
[2021-04-05 13:24] VITALS: BP 103/50; PULSE 56; RESP 16; TEMP 36.8; O2SAT 100
== END 2021-04-03 12:30 | disposition home or self-care (01) | DRG 560 ==
LOC: ANHLDR 05:15 → ANHOB2 22:16
PROVIDERS: Admitting Provider Student in an Organized Health Care Education/Training Program; Visit Provider Student in an Organized Health Care Education/Training Program
DX: O36.5930 Maternal care for other known or suspected poor fetal growth, third trimester, not applicable or unspecified (principal); Z37.0 Single live birth; Z3A.36 36 weeks gestation of pregnancy; O36.8330 Maternal care for abnormalities of the fetal heart rate or rhythm, third trimester, not applicable or unspecified; O99.824 Streptococcus B carrier state complicating childbirth; O71.4 Obstetric high vaginal laceration alone; O99.02 Anemia complicating childbirth; D64.9 Anemia, unspecified
CPT/HCPCS: 36415; 80307; 85014; 85018; 85025; 86592; 86850; 86900; 86901; 88307; A9270; J0290; J2405; J2590; J2795; J3010; J7120

== ENCOUNTER 2021-11-14 09:01 | Emergency (ER) | payer BC, SELFPAY ==
--- NOTE | ~2021-11-14 | US_ITS ---
US pelvic complete w TV DATE: 11/14/2021 11:55 INDICATION: Pelvic pain TECHNIQUE: Real-time imaging via transabdominal and transvaginal approaches COMPARISON: None FINDINGS: The uterus measures 7.2 cm height, 3.8 cm AP and 5.2 cm transverse dimension. The central e ndometrial echo complex measures up to 10 mm AP dimension. The left ovary measures 2.7 x 2.2 x 3.3 cm with probable ruptured approximately 1.8 x 1.0 [address] There is vascular flow to the left ovary. The right ovary measures 2.7 x 2.6 x 2.5 cm, with vascular flow. Mild free fluid in the posterior cul-de-sac. IMPRESSION: Probable ruptured left ovarian cyst with mild free fluid in the posterior cul-de-sac Reviewed, dictated and finalized at [facility] Reviewed, dictated and finalized at [facility] IMPRESSION: Probable ruptured left ovarian cyst with mild free fluid in the pos terior cul-de-sac
[2021-11-14 09:30] VITALS: BP 127/72; PULSE 107; RESP 16; TEMP 36.9; O2SAT 100
[2021-11-14 10:05] LABS: Basophils Absolute Auto 0.1 K/mm3 (0.0-0.1); Basophils Percent Auto 1.2 % (0.2-1.2); Eosinophils Absolute Auto 0.1 K/mm3 (0-0.3); Eosinophils Percent Auto 1.5 % (0-4.4); Hematocrit 43.6 % (37.0-47.0); Hemoglobin 13.8 g/dL (12.0-15.0); Immature Granulocyte Absolute 0.02 K/mm3 (0.00-0.031); Immature Granulocyte Percent A 0.3 % (0-0.5); Lymphocytes Absolute Auto 2.35 K/mm3 (0.9-3.2); Lymphocytes Percent Auto 39.4 % (18.3-44.2); Mean Corpuscular HGB Conc 31.7 g/dl (32-36); Mean Corpuscular Volume 91.6 fl (80-100); Monocytes Absolute Auto 0.5 K/mm3 (0.1-0.6); Monocytes Percent Auto 7.9 % (2.6-8.5); Neutrophils Percent Auto 49.7 % (45.5-73.1); Platelet Count Result 322 k/mm3 (150-375); Red Blood Count 4.76 M/mm3 (4.2-5.4); Red Cell Distribution Width 14.1 % (11.5-14.5)
[2021-11-14 10:13] LABS: Appearance Urine Clear (Clear); Bilirubin Urine Negative (Negative); Blood Urine Negative (Negative); Color Urine Yellow (Yellow); Glucose Urine UA Negative (Negative); Ketones Urine Negative (Negative); Leukocyte Esterase Ur Negative LEU/UL (Negative); Nitrate Urine Negative (Negative); Protein Urine Negative (Negative); Urobilinogen Urine 0.2 mg/dL (<2.0)
[2021-11-14 10:15] LABS: Alanine Aminotransferase 17 U/L (6-35); Albumin Level 4.5 g/dL (3.5-5.1); Alkaline Phosphatase 88 U/L (38-126); Anion Gap 3 mmol/L (8-16); Aspartate Amino Transferase 23 U/L (14-36); Bilirubin,Total 0.5 mg/dL (0.2-1.3); Blood Urea Nitrogen 12 mg/dL (7-17); Calcium 9.2 mg/dL (8.4-10.2); Carbon Dioxide 30 mmol/L (22-30); Chloride 104 mmol/L (98-107); Estimated CRCL calculation 78 ml/min; Estimated Glomerular Filt Rate > 60; Glucose 94 mg/dL (65-110); Lipase 29 U/L (23-300); Potassium 4.2 mmol/L (3.4-5.0); Sodium 137 mmol/L (137-145)
[2021-11-14 10:15] LABS: Add Urine Microscopic? NO
[2021-11-14 10:51] VITALS: BP 145/97; PULSE 60; RESP 18; O2SAT 100
--- NOTE | 2021-11-14 11:23 | ED.ABDPAIN ---
HPI - Abdominal Pain General Chief Complaint: Abdominal Pain <Tonja Rosas PA-C - Last Filed: 11/14/21 12:39> Stated Complaint: abdominal pain <Tonja Rosas PA-C - Last Filed: 11/14/21 12:39> Time Seen by Provider: 11/14/21 10:44 <Tonja Rosas PA-C - Last Filed: 11/14/21 12:39> Source: patient <EBER Workman Last Filed: 11/14/21 12:39> Mode of arrival: ambulatory <EBER Workman Last Filed: 11/14/21 12:39> Limitations: no limitations <Tonja Rosas PA-C - Last Filed: 11/14/21 12:39> History of Present Illness HPI narrative: This is a 21-year-old female that presents to the emergency department for pelvic pain noted over the last couple of weeks. Reports the pain has been constant. It is intermittently more sharp in nature. She has been taking Tylenol with little relief. She is due to start a cycle and has not yet. Is unsure if she is . She also reports some abnormal vaginal discharge. Denies fever, vomiting, dysuria, hematuria. <Tonja Rosas PA-C - Last Filed: 11/14/21 12:39> Related Data Allergies/Adverse Reactions: Allergies Allergy/AdvReac Type Severity Reaction Status Date / Time No Known Allergies Allergy Verified 05/07/21 12:16 <Tonja Rosas PA-C - Last Filed: 11/14/21 12:39> Review of Systems Review of Systems: CONSTITUTIONAL: Denies fever GASTROINTESTINAL: Reports abdominal pain. Denies nausea, vomiting, or diarrhea. GENITOURINARY: Denies dysuria or hematuria. <Tonja Rosas PA-C - Last Filed: 11/14/21 12:39> All systems reviewed & are unremarkable except as noted in HPI and below <EBER Workman Last Filed: 11/14/21 12:39> PMFSH Past Medical History Medical History: Medical History Anemia Miscarriage Vaginal delivery 04/01/21 <Tonja Rosas PA-C - Last Filed: 11/14/21 12:39> Social History Social History: Social History Smoking status: Never smoker Alcohol intake: former Substance use: current Substance use type: marijuana Last use: unsure Spiritual care concerns: No Agree to blood products: No <Tonja Rosas PA-C - Last Filed: 11/14/21 12:39> Exam Narrative: GENERAL: Well-appearing, well-nourished, and in no acute distress. HEAD: Normocephalic, atraumatic. EYES: EOMI. CHEST: Clear to auscultation. No respiratory distress. No wheezes rales or rhonchi HEART: Regular rate and rhythm. No murmur heard. Normal peripheral pulses. ABDOMEN: Soft, nondistended, normal active bowel sounds. Mild tenderness to palpation throughout the lower abdomen, without guarding. No CVA tenderness EXTREMITIES: Normal range of motion. No edema. SKIN: Warm, dry, no rash. NEURO: No focal deficits. Alert and oriented x3. PSYCH: Normal mood and affect PELVIC: Mild cervical irritation is noted with small amount of yellow/clear cervical discharge <Tonja Rosas PA-C - Last Filed: 11/14/21 12:39> Course PLASTIC BOAT BUFFER/PA Physician Supervision For this patient encounter, I reviewed the PLASTIC BOAT BUFFER or PA documentation, treatment plan, and medical decision making <Quinten Wolff MD - Last Filed: 11/14/21 15:20> Consultations Consultation #1: Spoke with Dr. Rivera about patient and work-up. Patient is stable and felt appropriate for further outpatient evaluation. <Tonja Rosas PA-C - Last Filed: 11/14/21 12:39> Date: 11/14/21 <Tonja Rosas PA-C - Last Filed: 11/14/21 12:39> Time: 12:36 <Tonja Rosas PA-C - Last Filed: 11/14/21 12:39> Vital Signs Vital signs: Vital Signs Temperature 98.5 F 11/14/21 09:30 Pulse Rate 107 H 11/14/21 09:30 Respiratory Rate 16 11/14/21 09:30 Blood Pressure 127/72 11/14/21 09:30 Pulse Oximetry 100 11/14/21 09:30 Oxygen Delivery Room Air 11/14/21 09:30 Temperature 98.5 F 11/14/21
--- NOTE | 2021-11-14 11:43 | PC.NURSE ---
Patient to ultrasound
[2021-11-14] MEDS: IBUPROFEN 600 MG TABLET PO (12:50)
[2021-11-14 13:02] VITALS: BP 103/75; PULSE 75; RESP 18; O2SAT 98
== END 2021-11-14 13:03 | disposition home or self-care (01) ==
PROVIDERS: Physician Assistant; Emergency Provider Emergency Medicine
DX: N83.202 Unspecified ovarian cyst, left side (principal); Z86.2 Personal history of diseases of the blood and blood-forming organs and certain disorders involving the immune mechanism
CPT/HCPCS: 36415; 76830; 76856; 80053; 81003; 81025; 83690; 85025; 87070; 87077; 87491; 87591; 87808; 99284; A9270

== ENCOUNTER 2021-11-15 00:12 | Emergency (ER) | payer BC, SELFPAY ==
[2021-11-15] VITALS (10 sets, daily range): BP systolic 96–117; BP diastolic 54–71; PULSE 62–94; RESP 13–19; TEMP 36.9; O2SAT 98–100
--- NOTE | 2021-11-15 00:46 | ED.ABDPAIN ---
HPI - Abdominal Pain General Chief Complaint: Abdominal Pain <EBER Cramer Last Filed: 11/15/21 03:16> Stated Complaint: abd pain <EBER Cramer Last Filed: 11/15/21 03:16> Time Seen by Provider: 11/15/21 00:14 <EBER Cramer Last Filed: 11/15/21 03:16> Source: patient and old records reviewed <EBER Cramer Last Filed: 11/15/21 03:16> Mode of arrival: EMS <EBER Cramer Last Filed: 11/15/21 03:16> Limitations: no limitations <EBER Cramer Last Filed: 11/15/21 03:16> History of Present Illness HPI narrative: Patient is a 21-year-old female who presents to the ED, via EMS with report of lower abdominal pain. Patient reports she has had lower abdominal cramping for the last several weeks related to her menstrual cycles. She was seen in the ED yesterday, 11/14, for this pain. She had a pelvic exam and pelvic ultrasound done at which point she was diagnosed with a ruptured left ovarian cyst. There was a minimal amount of fluid in the posterior cul-de-sac. JOB COST ESTIMATOR was consulted who felt patient was appropriate for outpatient management. Patient states she was given morphine pill prior to discharge home around 2 PM yesterday. This relieved her pain until around 7 PM. She tried taking 600 mg of Tylenol at that time without relief, prompting her to return to the ED. Patient denies any fever, chills, nausea, vomiting, dysuria, hematuria. Per previous records, UA without signs of infection from yesterday, hemoglobin stable, UPT negative. <EBER Cramer Last Filed: 11/15/21 03:16> Related Data Home Medications: Home Medications Medication Instructions Recorded Confirmed No Home Medications 11/15/21 11/15/21 <EBER Cramer Last Filed: 11/15/21 03:16> Allergies/Adverse Reactions: Allergies Allergy/AdvReac Type Severity Reaction Status Date / Time No Known Allergies Allergy Verified 11/15/21 00:20 <Elizabeth Concepcion PA-C - Last Filed: 11/15/21 03:16> Review of Systems Review of Systems: CONSTITUTIONAL: Denies fever, chills, or sweats. CARDIOVASCULAR: Denies chest pain. RESPIRATORY: Denies dyspnea. GASTROINTESTINAL: Reports lower abdominal pain. Denies nausea, vomiting, or diarrhea. GENITOURINARY: Denies dysuria or hematuria. MUSCULOSKELETAL: Denies back pain, joint pain, or myalgia. NEUROLOGIC: Denies headache, numbness, or weakness. <Elizabeth Concepcion PA-C - Last Filed: 11/15/21 03:16> All systems reviewed & are unremarkable except as noted in HPI and below <Elizabeth Concepcion PA-C - Last Filed: 11/15/21 03:16> PMFSH Past Medical History Medical History: Medical History Anemia Miscarriage Vaginal delivery 04/01/21 <Elizabeth Concepcion PA-C - Last Filed: 11/15/21 03:16> Surgical History Surgical History: Surgical History (Updated 11/15/21 @ 03:12 by Elizabeth Concepcion PA-C) No pertinent past surgical history <Elizabeth Concepcion PA-C - Last Filed: 11/15/21 03:16> Social History Social History: Social History Smoking status: Never smoker Alcohol intake: former Substance use: current Substance use type: marijuana Last use: unsure Spiritual care concerns: No Agree to blood products: No <Elizabeth Concepcion PA-C - Last Filed: 11/15/21 03:16> Exam Narrative: GENERAL: Well appearing, well-nourished, non-toxic, in no acute distress. HEAD: Normocephalic, atraumatic. NECK: Supple. No adenopathy, no masses. RESPIRATORY: Airway patent, respirations nonlabored. Clear to auscultation bilaterally, no rales, rhonchi, wheezing. CARDIOVASCULAR: Regular rate and rhythm without murmurs, rubs, or gallops. Peripheral pulses 2+ and equal bilaterally. ABDOMINAL: Soft, mild tenderness to lower abdomen, nonspecific to either lower quadrant. Nondistended, no hepatosplenomegaly. Normo
[2021-11-15] MEDS: KETOROLAC 30 MG/ML VIAL (*BKC) IV PUSH (00:52)
[2021-11-15 01:09] LABS: Basophils Absolute Auto 0.1 K/mm3 (0.0-0.1); Basophils Percent Auto 0.9 % (0.2-1.2); Eosinophils Absolute Auto 0.1 K/mm3 (0-0.3); Eosinophils Percent Auto 1.3 % (0-4.4); Hematocrit 42.3 % (37.0-47.0); Hemoglobin 13.7 g/dL (12.0-15.0); Immature Granulocyte Absolute 0.02 K/mm3 (0.00-0.031); Immature Granulocyte Percent A 0.3 % (0-0.5); Lymphocytes Percent Auto 46.7 % (18.3-44.2); Mean Corpuscular HGB Conc 32.4 g/dl (32-36); Mean Corpuscular Hemoglobin 29.2 pg (26-34); Mean Corpuscular Volume 90.2 fl (80-100); Mean Platelet Volume 10.9 fl (7.4-10.4); Monocytes Absolute Auto 0.5 K/mm3 (0.1-0.6); Monocytes Percent Auto 6.3 % (2.6-8.5); Neutrophils Absolute Auto 3.5 K/mm3 (1.3-6.7); Neutrophils Percent Auto 44.5 % (45.5-73.1); Platelet Count Result 337 k/mm3 (150-375); Red Blood Count 4.69 M/mm3 (4.2-5.4); White Blood Count 7.9 K/mm3 (4.5-10.0)
== END 2021-11-15 02:18 | disposition home or self-care (01) ==
PROVIDERS: Physician Assistant; Emergency Provider Emergency Medicine
DX: N83.202 Unspecified ovarian cyst, left side (principal); Z86.2 Personal history of diseases of the blood and blood-forming organs and certain disorders involving the immune mechanism
CPT/HCPCS: 36415; 85025; 96374; 99284; J1885

== ENCOUNTER 2022-11-23 15:41 | Emergency (ER) | payer SELFPAY ==
[2022-11-23 15:52] VITALS: BP 99/59; PULSE 66; RESP 14; TEMP 36.8; O2SAT 100
--- NOTE | 2022-11-23 15:58 | ED.FEMALEGU ---
HPI - Female Genitourinary General Chief complaint: Urogenital-Female Stated complaint: Irritated vagina Time Seen by Provider: 11/23/22 16:10 Source: patient and RN notes reviewed Mode of arrival: ambulatory Limitations: no limitations History of Present Illness HPI Narrative: 22-year-old female presents concern for sexually transmitted disease. She reports she recently got a new partner. For about 2 weeks she has been having vaginal irritation and odor. She reports white discharge. She reports some lower abdominal cramping. She denies dysuria, frequency, urgency, fever. She reports she has had BV in the past, but without the abdominal cramping. Reports she has an STD in the past with similar symptoms that she has right now. She is not sure of her last period because she uses [facility] elicited complaint: UTI Related Data Home Medications Medication Instructions Recorded Confirmed No Home Medications 11/23/22 11/23/22 Allergies Allergy/AdvReac Type Severity Reaction Status Date / Time No Known Allergies Allergy Verified 11/16/21 13:52 Review of Systems Review of Systems: CONSTITUTIONAL: Denies malaise, chills, sweats, or fever. CARDIOVASCULAR: Denies chest pain, palpitations, or edema. RESPIRATORY: Denies cough or dyspnea. GASTROINTESTINAL: Denies abdominal pain, nausea, vomiting, diarrhea GENITOURINARY: Denies dysuria, frequency, urgency, suprapubic pressure. Denies flank pain or hematuria. Reports suprapubic cramping, vaginal irritation, odor, discharge SKIN: Denies rash or itching. MUSCULOSKELETAL: Denies back pain or myalgia. All systems reviewed & are unremarkable except as noted in HPI and below PMFSH Past Medical History Medical History Anemia Miscarriage Vaginal delivery 04/01/21 Surgical History Surgical History No pertinent past surgical history Social History Social History Smoking status: Never smoker Alcohol intake: former Substance use: current Substance use type: marijuana Last use: unsure Spiritual care concerns: No Agree to blood products: No Comments At time of signature, agree with nursing past medical, surgical, social and family history. There is no relevant family history pertinent to the presenting complaint Exam Narrative: GENERAL: Well-appearing, well-nourished, and in no acute distress. HEAD: Normocephalic. EYES: PERRLA, conjunctivae clear. NECK: Supple. No lymphadenopathy CHEST: Clear to auscultation. No respiratory distress. HEART: Regular rate and rhythm. ABDOMEN: Soft, nontender upon palpation, nondistended, normal active bowel sounds, no palpable or pulsatile masses, no guarding. No CVA tenderness SKIN: Warm, dry, no rash. NEURO: Alert and oriented x3. PSYCH: Normal mood and affect Course Course Emergency Course: Patient is aware of diagnosis, understands and agrees to treatment plan. Anticipatory guidance given. Patient agrees to follow-up as directed and is aware of reasons to seek care at the emergency department. Portions of this record may have been created with voice recognition software Level of Care: Express Care Visit Vital Signs Vital signs: Vital Signs Temperature 98.3 F 11/23/22 15:52 Pulse Rate 66 11/23/22 15:52 Respiratory Rate 14 11/23/22 15:52 Blood Pressure 99/59 L 11/23/22 15:52 Pulse Oximetry 100 11/23/22 15:52 Oxygen Delivery Room Air 11/23/22 15:52 Temperature 98.3 F 11/23/22 15:52 Pulse Rate 66 11/23/22 15:52 Respiratory Rate 14 11/23/22 15:52 Blood Pressure 99/59 L 11/23/22 15:52 Pulse Oximetry 100 11/23/22 15:52 Oxygen Delivery Room Air 11/23/22 15:52 Reviewed. MDM - Female Genitourinary MDM Narrative Medical decision making narrative: Exam findings and UA show no acute melvin
[2022-11-23] MEDS: cefTRIAXone 500 MG, LIDOCAINE HCL 1% LOCAL INJ 1 ML IM (16:25)
== END 2022-11-23 16:53 | disposition home or self-care (01) ==
PROVIDERS: Emergency Provider Nurse Practitioner
DX: Z11.3 Encounter for screening for infections with a predominantly sexual mode of transmission (principal)
CPT/HCPCS: 81003; 81025; 87491; 87591; 87661; 96372; 99214; G0463; J0696

== ENCOUNTER 2023-03-10 10:20 | Emergency (ER) | payer MEDICAID, SELFPAY ==
[2023-03-10 10:48] VITALS: BP 100/68; PULSE 73; RESP 16; TEMP 36.6; O2SAT 100
[2023-03-10 11:22] LABS: Appearance Urine Clear (Clear); Bilirubin Urine Negative (Negative); Blood Urine Negative (Negative); Color Urine Yellow (Yellow); Glucose Urine UA Negative (Negative); Ketones Urine Negative (Negative); Leukocyte Esterase Ur Negative LEU/UL (Negative); Nitrate Urine Negative (Negative); Protein Urine Negative (Negative); Urobilinogen Urine 0.2 mg/dL (<2.0); pH Urine 6.5 (5.0-9.0)
[2023-03-10 11:27] LABS: Add Urine Microscopic? NO
--- NOTE | 2023-03-10 13:44 | PC.NURSE ---
Pt called back to be seen 3 separate times, pt not in waiting room
== END 2023-03-10 13:44 | disposition left against medical advice (07) ==
PROVIDERS: Emergency Medicine
DX: R10.30 Lower abdominal pain, unspecified (principal)
CPT/HCPCS: 81003; 81025; 99199

== ENCOUNTER 2023-10-19 18:02 | Emergency (ER) | payer MEDICAID, SELFPAY ==
[2023-10-19 18:04] VITALS: BP 105/49; PULSE 96; RESP 20; TEMP 37.3; O2SAT 99
--- NOTE | 2023-10-19 21:27 | ED.GENADULT ---
HPI - General Adult General Chief complaint: Abdominal Pain Stated complaint: body aches, fever, BETH, sore throat Time Seen by Provider: 10/19/23 20:46 History of Present Illness HPI narrative: This is @ 14 weeks gestation 23-year-old female station presenting with sore throat fevers and body aches. Patient has a sick child at home that similar symptoms. Patient denies nausea vomiting diarrhea. she has had some mild abdominal cramping but no bleeding, vaginal discharge. patient has ultrasound that has confirmed her babies in the uterus. Related Data Allergies Allergy/AdvReac Type Severity Reaction Status Date / Time No Known Allergies Allergy Verified 11/16/21 13:52 [facility] Past Medical History Medical History Anemia Miscarriage Vaginal delivery 04/01/21 Surgical History Surgical History No pertinent past surgical history Social History Social History Smoking status: Never smoker Alcohol intake: former Substance use: current Substance use type: marijuana Last use: unsure Spiritual care concerns: No Agree to blood products: No Exam Narrative: APPEARANCE: No apparent distress. Head: Tonsils are erythematous with exudates. Uvula is midline. No evidence of abscess EYES: EOMI, NOSE: Atraumatic NECK: Trachea midline RESPIRATORY: No increased rate of breathing CARDIOVASCULAR: RRR, ABDOMINAL: soft nontender no guarding or rebound, point of care OB ultrasound showed a normal heart rate. MUSCULOSKELETAl: No obvious deformities NEURO: Alert. Moving 4/4 extremities SKIN:: Warm, dry. Normal color PSYCHIATRIC: Normal affect Course Vital Signs Vital signs: Vital Signs Temperature 99.2 F 10/19/23 18:04 Pulse Rate 96 10/19/23 18:04 Respiratory Rate 20 10/19/23 18:04 Blood Pressure 105/49 L 10/19/23 18:04 Pulse Oximetry 99 10/19/23 18:04 Oxygen Delivery Room Air 10/19/23 18:04 Temperature 99.2 F 10/19/23 18:04 Pulse Rate 96 10/19/23 18:04 Respiratory Rate 20 10/19/23 18:04 Blood Pressure 105/49 L 10/19/23 18:04 Pulse Oximetry 99 10/19/23 18:04 Oxygen Delivery Room Air 10/19/23 18:04 Medical Decision Making MDM Narrative Medical decision making narrative: -Course: 23-year-old female presenting with sore throat. Tonsils are erythematous with exudates. She will be treated for strep throat. Discharged on amoxicillin given return precautions. Patient is but does not have any OB complaints. Point of care ultrasound showed normal heart rate. -DDX includes but is not limited to: strep throat, viral pharyngitis -Co-morbidities complicating care: -Interventions: amoxicillin, dexamethasone, Tylenol -Shared decision making / Disposition: discharge -RX amoxicillin Vital Signs Vital Signs: Vital Signs Temperature 99.2 F 10/19/23 18:04 Pulse Rate 96 10/19/23 18:04 Respiratory Rate 20 10/19/23 18:04 Blood Pressure 105/49 L 10/19/23 18:04 Pulse Oximetry 99 10/19/23 18:04 Oxygen Delivery Room Air 10/19/23 18:04 Temperature 99.2 F 10/19/23 18:04 Pulse Rate 96 10/19/23 18:04 Respiratory Rate 20 10/19/23 18:04 Blood Pressure 105/49 L 10/19/23 18:04 Pulse Oximetry 99 10/19/23 18:04 Oxygen Delivery Room Air 10/19/23 18:04 Discharge Plan Discharge Clinical Impression: Acute tonsillitis Patient Disposition: Home, Self-Care Condition: Stable Instructions: Antibiotic Form, Pharyngitis (ED) Additional Instructions: Please complete the antibiotics as instructed. Please follow-up with your primary care physician further management. Return if you develop shortness of breath, worsening throat pain or difficulty swallowing her own secretions P Prescriptions: New amoxicillin 500 mg table
[2023-10-19] MEDS: AMOXICILLIN 500 MG CAPSULE PO (21:58)
[2023-10-19] MEDS: dexAMETHasone SOD PHOS INJ 10 MG/ML 1 ML VIAL PO (21:59)
[2023-10-19] MEDS: ACETAMINOPHEN 500 MG TABLET 1000 MG PO (21:59)
== END 2023-10-19 22:06 | disposition home or self-care (01) ==
PROVIDERS: Emergency Provider Emergency Medicine
DX: O99.512 Diseases of the respiratory system complicating pregnancy, second trimester (principal); J03.90 Acute tonsillitis, unspecified; Z86.2 Personal history of diseases of the blood and blood-forming organs and certain disorders involving the immune mechanism; Z3A.14 14 weeks gestation of pregnancy
CPT/HCPCS: 99283; A9270; J1100

== ENCOUNTER 2023-11-17 20:12 | Emergency (ER) | payer MEDICAID, SELFPAY ==
[2023-11-17 20:14] VITALS: BP 112/71; PULSE 86; RESP 20; TEMP 36.7; O2SAT 100
[2023-11-17] MEDS: LIDOCAINE HCL 2% LOCAL INJ 20 ML VIAL (20:28)
--- NOTE | 2023-11-17 20:30 | PC.NURSE ---
erp lipsmeyer at bedside to do numbing to mouth
--- NOTE | 2023-11-17 20:34 | ED.GENADULT ---
HPI - General Adult General Chief complaint: Dental/Oral Stated complaint: Left sided toothache, broken tooth Time Seen by Provider: 11/17/23 20:21 History of Present Illness HPI narrative: Patient is a 23-year-old female who presents emergency department with chief complaint of dental pain patient reports that she has a cracked tooth in her left upper molar and reports that she has had no pain relief after taking naproxen. Patient denies fever denies trismus Related Data Home Medications Medication Instructions Recorded Confirmed No Home Medications 11/17/23 11/17/23 Allergies Allergy/AdvReac Type Severity Reaction Status Date / Time No Known Allergies Allergy Verified 11/17/23 20:42 Review of Systems Review of Systems: A 10 system review of systems was completed on the patient and is negative except for what is stated in the HPI. Nursing and ancillary documentation was reviewed. PMFSH Past Medical History Medical History Anemia Miscarriage Vaginal delivery 04/01/21 Surgical History Surgical History No pertinent past surgical history Social History Social History Smoking status: Never smoker Alcohol intake: former Substance use: current Substance use type: marijuana Last use: unsure Spiritual care concerns: No Agree to blood products: No Exam Narrative: GENERAL: Well-appearing, well-nourished, and in no acute distress. HEAD: Normocephalic, atraumatic. EYES: PERRLA and EOMI. ENT: Nares clear, no rhinorrhea or epistaxis. Mucous membranes moist. There is a dental fracture present in the left posterior molar NECK: Supple. CHEST: Clear to auscultation. No respiratory distress. HEART: Regular rate and rhythm. No murmur heard. Normal peripheral pulses. ABDOMEN: Soft, nontender, nondistended, normal active bowel sounds. EXTREMITIES: Normal range of motion. No edema. SKIN: Warm, dry, no rash. NEURO: No focal deficits. Alert and oriented x3. PSYCH: Normal mood and affect. Course Vital Signs Vital signs: Vital Signs Temperature 36.7 C 11/17/23 20:14 Pulse Rate 86 11/17/23 20:14 Respiratory Rate 20 11/17/23 20:14 Blood Pressure 112/71 11/17/23 20:14 Pulse Oximetry 100 11/17/23 20:14 Oxygen Delivery Room Air 11/17/23 20:14 Temperature 36.7 C 11/17/23 20:14 Pulse Rate 86 11/17/23 20:14 Respiratory Rate 20 11/17/23 20:14 Blood Pressure 112/71 11/17/23 20:14 Pulse Oximetry 100 11/17/23 20:14 Oxygen Delivery Room Air 11/17/23 20:14 Procedures Other Procedure Procedure 1: Other Procedure: Dental block: After informed consent was obtained the patient verbally agreed to local infiltration Using 2% lidocaine the dirt soft tissue around tooth was infiltrated the patient had improvement in her pain no complication Medical Decision Making MDM Narrative Medical decision making narrative: Differential diagnosis includes dental fracture, dental abscess A dental block was performed for the patient then had significant improvement in her pain the patient started on amoxicillin and also given a short prescription for [place]. Patient follow-up with a dentist as soon as possible Vital Signs Vital Signs: Vital Signs Temperature 36.7 C 11/17/23 20:14 Pulse Rate 86 11/17/23 20:14 Respiratory Rate 11/17/23 20:14 Blood Pressure 112/71 11/17/23 20:14 Pulse Oximetry 100 11/17/23 20:14 Oxygen Delivery Room Air 11/17/23 20:14 Temperature 36.7 C 11/17/23 20:14 Pulse Rate 86 11/17/23 20:14 Respiratory Rate 11/17/23 20:14 Blood Pressure 112/71 11/17/23 20:14 Pulse Oximetry 100 11/17/23 20:14 Oxygen Delivery Room Air 11/17/23 20:14 Discharge Plan Discharge Clinical Impression: Abscess,
[2023-11-17] MEDS: AMOXICILLIN 500 MG CAPSULE PO (20:45)
[2023-11-17] MEDS: HYDROcodone/acetaminophen (*CRX) 5-325 MG TABLET 1 TAB PO (20:45)
--- NOTE | 2023-11-17 21:01 | PC.NURSE ---
Pt re-numbed x 2 by erp gurdeep
[2023-11-17 21:11] VITALS: BP 120/80; PULSE 68; RESP 18; O2SAT 98
--- NOTE | 2023-11-17 21:11 | PC.NURSE ---
pt re-numbed by erp gurdeep
== END 2023-11-17 21:14 | disposition home or self-care (01) ==
PROVIDERS: Emergency Provider Emergency Medicine
DX: K04.7 Periapical abscess without sinus (principal); Z86.2 Personal history of diseases of the blood and blood-forming organs and certain disorders involving the immune mechanism
CPT/HCPCS: 64999; 99283; A9270

== ENCOUNTER 2024-01-01 23:41 | Observation (INO) | payer OTHER, SELFPAY ==
[2024-01-02] VITALS (33 sets, daily range): BP systolic 100–112; BP diastolic 48–68; PULSE 52–162; O2SAT 86–100; BMI 22.3
--- NOTE | 2024-01-02 00:08 | OBADM ---
This patient, Hai Quezada, admitted to the OB room OB Post 115 for observation. Patient/family oriented to hospital policies and general routines including ID bracelet, bed and alarms, visiting hours, pain management, procedures, bathroom and other care routines, personal items, smoking policy, room service/diet, and visiting hours. Patient/Family are encouraged to report perceived risks to care and to ask questions if they do not understand what they are told or what they should do.
[2024-01-02 00:46] LABS: Add Urine Microscopic? YES; Appearance Urine Clear (Clear); Bacteria Urine None Seen /hpf; Bilirubin Urine Negative (Negative); Blood Urine Negative (Negative); Color Urine Yellow (Yellow); Glucose Urine UA Negative (Negative); Ketones Urine 3+ mg/dL (Negative); Leukocyte Esterase Ur Negative LEU/UL (Negative); Mucus Urine Present /lpf; Need Manual Microscopic Reviewed; Nitrate Urine Negative (Negative); Non Pathogenic Casts 0-2; Protein Urine 1+ mg/dL (Negative); RBC Urine 0-2 /hpf (0-2); Specific Grav Ur 1.035 (1.001-1.035); Squamous Epithelial Cell Urine Occasional /hpf (Few); WBC Urine 0-5 /hpf (0-3); pH Urine 6.5 (5.0-9.0)
[2024-01-02] MEDS: ACETAMINOPHEN 500 MG TABLET 1000 MG PO (01:16)
[2024-01-02] MEDS: TERBUTALINE SULFATE 1 MG/ML VIAL 0.25 MG SUB-Q ×2 (01:52→02:18)
--- NOTE | 2024-01-03 09:14 | PM.OBTRLD ---
OB - Triage/Final Diagnosis Visit Information Reason for evaluation: threatened labor Comments/Additional reasons for admission: I have assessed the risk for this patient, Hai Quezada, and determined that she would benefit from observation care. Evaluation Laboratory results: Laboratory Tests 01/01/24 23:53 Urine Color Yellow Urine Appearance Clear Urine pH 6.5 Ur Specific [place] 1.035 Urine Protein 1+ H Urine Glucose (UA) Negative Urine Ketones 3+ H Ur Blood (Man) Negative Urine Nitrate Negative Urine Bilirubin Negative Urine Urobilinogen 1.0 Add Ur Microanalysis Reviewed Leukocyte Esterase Rfl Negative Urine RBC 0-2 Urine WBC 0-5 Ur Squamous Epith Cells Occasional Urine Bacteria None seen Urine Casts 0-2 Urine Mucus Present
== END 2024-01-02 03:56 | disposition home or self-care (01) ==
PROVIDERS: Admitting Provider Obstetrics & Gynecology; Visit Provider Obstetrics & Gynecology
DX: O47.02 False labor before 37 completed weeks of gestation, second trimester (principal); Z3A.24 24 weeks gestation of pregnancy
CPT/HCPCS: 81001; 96372; A9270; G0378; G0379; J3105

== ENCOUNTER 2024-03-28 09:58 | Inpatient (IN) | payer OTHER, SELFPAY ==
[2024-03-28] VITALS (35 sets, daily range): BP systolic 61–125; BP diastolic 43–84; PULSE 48–92; RESP 18; TEMP 36.1–37; O2SAT 97–100; BMI 24.0
[2024-03-28 12:17] LABS: Basophils Absolute Auto 0.1 K/mm3 (0.0-0.1); Basophils Percent Auto 0.5 % (0.2-1.2); Eosinophils Absolute Auto 0.1 K/mm3 (0-0.3); Eosinophils Percent Auto 0.5 % (0-4.4); Hemoglobin 11.7 g/dL (12.0-15.0); Immature Granulocyte Absolute 0.09 K/mm3 (0.00-0.031); Lymphocytes Absolute Auto 2.23 K/mm3 (0.9-3.2); Lymphocytes Percent Auto 24.2 % (18.3-44.2); Mean Corpuscular HGB Conc 33.4 g/dl (32-36); Mean Corpuscular Hemoglobin 30.4 pg (26-34); Mean Corpuscular Volume 90.9 fl (80-100); Mean Platelet Volume 10.6 fl (7.4-10.4); Monocytes Absolute Auto 0.6 K/mm3 (0.1-0.6); Neutrophils Absolute Auto 6.2 K/mm3 (1.3-6.7); Neutrophils Percent Auto 67.8 % (45.5-73.1); Platelet Count Result 226 k/mm3 (150-375); Red Blood Count 3.85 M/mm3 (4.2-5.4); Red Cell Distribution Width 13.3 % (11.5-14.5); White Blood Count 9.2 K/mm3 (4.5-10.0)
[2024-03-28] MEDS: LACTATED RINGERS 1,000 ML 125 ML IV CONT ×2 (12:30→14:03)
[2024-03-28 12:38] LABS: Platelet Estimate Adequate (Adequate)
[2024-03-28 12:39] LABS: Atypical Lymphocytes Present; Schistocytes None Seen
--- NOTE | 2024-03-28 12:52 | LDADM ---
This patient, Hai Quezada, was admitted to Labor/Delivery/Recovery 106 on 03/28/24 at 09:58. Plans for labor, pain management and were discussed with patient. Patient/family oriented to hospital policies and general routines including ID bracelet, bed and alarms, visiting hours, pain management, procedures, bathroom and other care routines, personal items, smoking policy, room service/diet and guest tray routines, infant security routines, and visiting hours. Patient/Family are encouraged to report perceived risks to care and to ask questions if they do not understand what they are told or what they should do. See OBIX for further documentation.
[2024-03-28 13:00] LABS: Hepatitis B Surface Antigen Negative (Negative)
[2024-03-28 13:06] LABS: Rubella IgG Antibody 15.6 IU/ML
[2024-03-28 13:10] LABS: HIV 1/2 Ab P24 Ag Result Negative (Negative)
[2024-03-28 13:13] LABS: Rapid Plasma Reagin Non-Reactive (NonReactive)
[2024-03-28] MEDS: OXYTOCIN 30 UNITS/NS 500 ML 30 UNITS/500 ML BAG IV CONT (14:03)
--- NOTE | 2024-03-28 14:25 | WPDOBADMIT ---
Obstetrics - Admit Note Admission Note: record reviewed. No pertinent additions to the history and/or any subsequent changes in the physical findings that are not consistent with the expected course of the were found. Additions to the history and/or subsequent changes in the physical findings follow. walk in pt, admit for labor SVE 4-5/80/-2 FHR category 1, AROM large amount of clear, odorless fluid, anticipate vaginal delivery
[2024-03-28 15:43] LABS: Amphetamine Screen Urine Negative (Negative); Barbiturate Screen Urine Negative (Negative); Benzodiazepines Screen Urine Negative (Negative); Cannabinoid Screen Urine Negative (Negative); Cocaine Screen Urine Negative (Negative); Methadone Screen Urine Negative (Negative); Opiate Screen Urine Negative (Negative); Phencyclidine Screen Urine Negative (Negative)
--- NOTE | 2024-03-28 18:41 | P.PCNOB_ITS ---
OB - Vaginal Delivery Note Procedure Delivery date: 03/28/24 Delivery augmentation: Rupture of Membranes Delivery monitor: External FHT and External Uterine Route of delivery: Episiotomy description: None Laceration Description: None Specimen: No Quantitative Blood Loss (ml): 200 Anesthesia type: Epidural Disposition: Floor Complications: No immediate complications [place] Baby Date of : 03/28/24 Time of : 18:34 Gestational Age by Date: 37 Infant gender: Male presentation: vertex position: Left Occiput Anterior Placenta delivery description: Spontaneous Cord Vessel Description: 3 Vessels and Clamped/Cut score one minute: 9 score five minutes: 9 Narrative: mother and baby skin to skin in stable condition
[2024-03-28] MEDS: OXYTOCIN 30 UNITS/NS 500 ML 30 UNITS/500 ML BAG 125 UNITS IV CONT (19:00)
[2024-03-28] MEDS: ACETAMINOPHEN 325 MG TABLET 650 MG PO (19:12)
[2024-03-28] MEDS: IBUPROFEN 600 MG TABLET PO (19:13)
[2024-03-29 04:45] VITALS: BP 96/60; PULSE 58; RESP 18; TEMP 36.8; O2SAT 100
[2024-03-29 04:58] LABS: Hematocrit 29.2 % (37.0-47.0); Hemoglobin 10.2 g/dL (12.0-15.0)
[2024-03-29] MEDS: IBUPROFEN 600 MG TABLET PO ×3 (07:51→23:12)
[2024-03-29 08:00] VITALS: PULSE 53; RESP 18; O2SAT 100
--- NOTE | 2024-03-29 08:00 | P.PNOB_ITS ---
OB - PN: Subj Subjective Date/time seen: 03/29/24 08:00 Interval history: pp day 1 OB - PN: Obj Data Labs 03/29/24 04:12 Labs: Laboratory Results - last 24 hr 03/28/24 03/28/24 03/29/24 12:03 15:19 04:12 WBC 9.2 RBC 3.85 L Hgb 11.7 L 10.2 L Hct 35.0 L 29.2 L MCV 90.9 MCH 30.4 MCHC 33.4 RDW 13.3 Plt Count 226 MPV 10.6 H Immature Gran % (Auto) 1.0 H Neut % (Auto) 67.8 Lymph % (Auto) 24.2 [place] % (Auto) 6.0 Eos % (Auto) 0.5 Baso % (Auto) 0.5 Lymph # (Auto) 2.23 [place] # (Auto) 0.6 Eos # (Auto) 0.1 Baso # (Auto) 0.1 Abs Immat Gran (auto) 0.09 H Absolute Neuts (auto) 6.2 Absolute Nucleated RBC 0.000 Nucleated RBC % 0.0 Atypical Lymphocytes Present Platelet Estimate Adequate Schistocytes None seen Urine Opiates Screen Negative Urine Methadone Screen Negative Ur Barbiturates Screen Negative Ur Phencyclidine Scrn Negative Ur Amphetamine Screen Negative U Benzodiazepines Scrn Negative Urine Cocaine Screen Negative U Cannabinoids Screen Negative RPR Non-reactive Hep Bs Antigen Negative HIV 1&2 Ab/P24 Ag 4thGn Negative Rubella IgG Antibody 15.6 Blood Type O Positive Antibody Screen Negative OB - PN A/P Plan day: 1 Plan: routine care Time Spent With Patient Time: Total time spent is greater than 50% in coordination of care (as documented) at patient's floor/unit and/or counseling patient: Review of Systems Review of Systems: All systems reviewed & are unremarkable except as noted in HPI and below Exam Const: General: cooperative Resp: Effort & Inspection: normal respiratory effort Cardio: Rate: regular rate
[2024-03-29 08:35] VITALS: BP 108/61; PULSE 53; RESP 18; TEMP 36.5; O2SAT 100
[2024-03-29 12:12] VITALS: BP 102/57; PULSE 56; RESP 16; TEMP 36.4; O2SAT 100
[2024-03-29] MEDS: ACETAMINOPHEN 325 MG TABLET 650 MG PO ×2 (12:24→23:12)
--- NOTE | 2024-03-29 13:37 | WPDANLDPN2 ---
Anes-Prog Note L&D Date/Time: 03/29/24 13:37 Comfortable throughout: labor and delivery Neuraxial method: epidural Epidural/Spinal procedure site: clean & non-tender Neuro status: Neuro function grossly intact. Cardiovascular status: normal Respiratory status: normal Airway patency: baseline Mental status: baseline Post-Op hydration status: normal Vital Signs: Last Vital Signs Temp 36.4 C 03/29/24 12:12 Pulse 56 L 03/29/24 12:12 Resp 16 03/29/24 12:12 BP 102/57 L 03/29/24 12:12 Pulse Ox 100 03/29/24 12:12 O2 Del Method Room Air 03/28/24 21:53 Pain score (VAS): 1 I/O: Intake & Output 03/28/24 03/29/24 03/29/24 23:59 07:59 15:59 Output Total 700 Balance -700 Post-procedural complaints: none Patient feedback: Patient satisfied with anesthetic care.
--- NOTE | 2024-03-29 15:56 | PCCCNOTE ---
Consult received for pt. scored high on OB substance abuse screening and [facility] job training. Spoke with RN Kylie who reported downstairs provided pt. with job training information. Met with mother at bedside. Mother reported baby and her reside with grandmother, uncle, and 3 year old sister. Mother reports she has all the needed supplies for baby (hospital provided her with car seat). Mother reports she does not have a diaper bag, but plans to get one. Mother stated she has all the other needed supplies for baby (diapers, wipes, bassinet and the father will be getting a new crib). Mother confirmed she is aware and getting arranged with WIC and SNAP. Baby's inspector type will be Dr. Torres. Mother reports no other prior DCFS case. Mother reported she does smoke marijuana sometimes which is legal. No cord sample taken per RN. No current concerns at this time and mother denied any other needs at this time.
[2024-03-29] MEDS: DOCUSATE SODIUM 100 MG CAPSULE PO (17:07)
[2024-03-29 23:49] VITALS: BP 109/74; PULSE 77; RESP 16; TEMP 36.6; O2SAT 99
[2024-03-30] MEDS: ACETAMINOPHEN 325 MG TABLET 650 MG PO (04:18)
[2024-03-30] MEDS: IBUPROFEN 600 MG TABLET PO (04:18)
--- NOTE | 2024-03-30 07:09 | PC.NURSE ---
Patient was given the opportunity to view the discharge video Mother & Baby Care, The First Two Weeks and to ask questions. Patient declined viewing the video and has been given the mother/baby guide for home reference.
[2024-03-30] MEDS: DOCUSATE SODIUM 100 MG CAPSULE PO (07:40)
[2024-03-30 07:45] VITALS: BP 95/53; PULSE 86; RESP 18; TEMP 36.7; O2SAT 100
[2024-03-30 08:00] VITALS: PULSE 86; RESP 18; O2SAT 100
--- NOTE | 2024-03-30 09:17 | PM.OBPNVD ---
OB - PN: Subj Subjective Date/time seen: 03/30/24 09:17 Interval history: pp day 2 doing well wants d/c home OB - PN: Obj Data Labs 03/29/24 04:12 OB - PN A/P Plan day: 2 Plan: routine care and discharge home Time Spent With Patient Time: Total time spent is greater than 50% in coordination of care (as documented) at patient's floor/unit and/or counseling patient: Review of Systems Review of Systems: All systems reviewed & are unremarkable except as noted in HPI and below Exam Const: General: cooperative, healthy appearing and comfortable Chest: Chest palpation & inspection: normal inspection of the chest Resp: Effort & Inspection: normal respiratory effort Cardio: Rate: regular rate Skin: General skin exam: normal color Neuro: General: patient oriented x3
--- NOTE | 2024-03-30 09:19 | PM.OBDSVD ---
DS: Admitting Diagnosis Discharge Date 03/30/24 Admitting Diagnosis labor, non reassuring heart tracing OB - DS: Summary OB Procedures : None OB Procedures Intrapartum: Spontaneous Vag Delivery OB Procedures: : None Peripartum Data Laceration Description: None Episiotomy description: None Time Spent with Patient Time attestation: Total time spent providing and/or coordinating discharge services: Discharge Plan Discharge Attending physician on discharge: Jose Luis Escalante Discharging Clinician: Davina Salgado Patient Disposition: Home, Self-Care Activity: pelvic rest Diet: regular Patient Instructions: Antibiotic Form Stand Alone Forms: General Discharge Information Follow-up/Referrals: Davina Salgado, CNM [Certified Nurse [employer]] - 4 Weeks Discharge Medications: New ibuprofen 600 mg Tablet 600 mg PO Q6H PRN (Reason: Cramping) Qty: 30 0RF No Action No Home Medications Date of admission: 03/28/24 09:58 Primary Care Provider: UNKNOWN,DOCTOR Admitting Provider: Jose Luis Escalante Attending physician on admission: Jose Luis Escalante Condition: Stable
[2024-03-30] MEDS: CYCLOBENZAPRINE HCL 5 MG TABLET PO (09:26)
[2024-04-01 11:31] VITALS: BP 120/59; PULSE 54; RESP 18; TEMP 36.8; O2SAT 100
== END 2024-03-30 11:56 | disposition home or self-care (01) | DRG 560 ==
LOC: ANHLDR 18:24 → ANHOB2 22:01
PROVIDERS: Advanced Practice Midwife; Admitting Provider Obstetrics & Gynecology; Visit Provider Obstetrics & Gynecology
DX: O76 Abnormality in fetal heart rate and rhythm complicating labor and delivery (principal); Z3A.37 37 weeks gestation of pregnancy; Z37.0 Single live birth
CPT/HCPCS: 36415; 80307; 85014; 85018; 85025; 86592; 86703; 86762; 86850; 86900; 86901; 87340; A9270; G0432; J2590; J2795; J7120